=== PATIENT | female | born 1930 | race Caucasian/White ===

== ENCOUNTER 2017-01-22 13:48 | Observation (INO) | payer MEDICARE, BC ==
[~2017-01-22] VITALS: Ht 175.3 cm; Wt 86.6 kg
--- NOTE | ~2017-01-22 | CON ---
PATIENT'S NAME: GERRI FUENTES [facility] AGE: 87 Y [address] ROOM: [address] [address] LOCATION: [facility] ADMIT DATE: 01/22/2017 Consultation DISCHARGE DATE: FAMILY PHYSICIAN: Henri Barrera MD ATTENDING PHYSICIAN: JORDYN CUMMINGS CONSULTING PHYSICIAN: Dr. Lilliam Alves. CHIEF COMPLAINT: Preoperative evaluation. HISTORY OF PRESENT ILLNESS: The patient is a very pleasant 87-year-old female, who unfortunately fell on Sunday, January 19 at about 9:30 in the morning. She was outside pulling some weeds and lost her balance, caught herself with the right arm and went to use the right arm to get up and further felt immediate pain after that. She had no loss of consciousness or no closed head trauma. The patient was seen and evaluated in [place] with Dr. Aldrich, who diagnosed her with a right distal radius fracture. The patient was splinted and placed in a sling, further consultation with Dr. Cummings occurred that day and he recommended that the patient be seen today for definitive treatment. The patient was seen and Dr. Cummings recommended admission for ORIF on 01/23/2017. We have been asked to evaluate the patient from cardiac and pulmonary standpoint and her ability to undergo anesthesia. The patient is relatively healthy and independent. She follows with her physician on a regular basis. She has not had any recent changes to her past medical history. She denies any chest pain, pressure, or palpitations, or orthopnea, or orthostasis or PND. She denies any cough, hemoptysis, or shortness of breath or wheezing. She has not had any surgical complications in the past. No history of DVT or PE. She denies any infected wounds or ones that would not heal. PAST MEDICAL HISTORY: Illnesses include: 1. Essential hypertension. 2. Bilateral lower extremity peripheral neuropathy. 3. Restless legs syndrome. 4. Chronic constipation. 5. History of pulmonary hypertension and question of pulmonary fibrosis. SURGICAL HISTORY: Includes: 1. Tonsillectomy at 17 years of age. 2. 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 ROOM: [address] [address] LOCATION: [facility] ADMIT DATE: 01/22/2017 Consultation DISCHARGE DATE: FAMILY PHYSICIAN: Henri Barrera MD ATTENDING PHYSICIAN: JORDYN CUMMINGS hardware replacement. 3. Left wrist fracture and repair. 4. Cholecystectomy. 5. Left 5th finger surgical repair. 6. Bilateral cataract extraction. 7. Right ankle surgery, 2012. 8. ACDF of C5 through C6, and C6 through C7 by Dr. Patel in 2000. 9. The patient reports a history of Lexiscan and cardiac cath, date unknown, results reported as negative, no further workup pursued. SOCIAL HISTORY: The patient is and retired. She denies any alcohol, tobacco, or illicit drug use and denies any second hand use, they live on a farm outside of [place], [place]. FAMILY HISTORY: Significant for diabetes in her mother. She states that her dad lives to the age of 101 and of natural causes. She did have three brothers, however, who following heart surgery, she states all were smokers. ALLERGIES: NO KNOWN MEDICAL ALLERGIES. CURRENT MEDICATIONS: 1. Losartan 50 mg q.a.m. 2. Gabapentin 300 mg twice daily. 3. Omeprazole to 20 mg daily. 4. Lasix 20 mg daily. 5. Metoprolol extended release 100 mg daily. 6. Multivitamin 1 tab in the morning. 7. Calcium plus D 600 mg twice daily. 8. Mirapex 0.25 mg in the evening. 9. Amitriptyline 100 mg in the evening. 10. Generic stool softener one daily. 11. Aspirin 81 mg, last dose was on January 21, 2017 in the evening. 12. MiraLAX 17 g daily. REVIEW OF SYSTEMS: Review of systems was obtained and deemed negative apart from those mentioned above in the HPI. PHYSICAL EXAMINATION: VITAL SIGNS. Height is 5 feet 9 inches, weight is 86.6 kilos, blood pressure is 138/56, pulse is 68, respirations 15, temp was 97.5. GENERAL: The patient is alert, oriented, in no acute distress. PATIENT'S NAME: GERRI FUENTES [facility] AGE: 87 Y [address] ROOM: [address] [address] LOCATION: [facility] ADMIT DATE: 01/22/2017 Consultation DISCHARGE DATE: FAMILY PHYSICIAN: Henri Barrera MD ATTENDING PHYSICIAN: JORDYN CUMMINGS HEENT: Head: Normocephalic and atraumatic. Eyes: Pupils are equal, round, and reactive to light. Throat: Posterior pharynx is nonerythematous. No tonsillar hypertrophy or exudate. Dentition: Good condition for her age. NECK: Supple. No adenopathy or thyromegaly. LUNGS: Clear to auscultation and percussion bilaterally. Breath sounds are artie and regular throughout. HEART: Regular rate and rhythm without murmur. No carotid bruits or JVD. ABDOMEN: Soft, nondistended. Positive bowel sounds auscultated. No masses or organomegaly palpated. EXTREMITIES: Bilateral lower extremities have trace to 1+ edema. No calf tenderness. No cyanosis or clubbing. MUSCULOSKELETAL: Right upper extremity is splinted in a sling. She has some edema noted in her fingers. Capillary refills left 2 seconds and sensation are intact, however, diminished from the left side. No significant joint effusions or crepitus noted on exam of range of motion. NEUROLOGIC: Cranial nerves II through XII grossly intact. No focal or sensory deficit noted. SKIN: Free of rash or lesion. PSYCHIATRIC: Mood and affect are appropriate for the patient's condition. LABORATORY DATA: Laboratory studies and x-ray are all pending at the time of dictation. IMPRESSION: 1. Right distal radial fracture, secondary to fall. 2. Essential hypertension. 3. Restless legs syndrome. 4. Chronic constipation. 5. Gastroesophageal reflux disease. 6. Peripheral neuropathy. 7. Insomnia. 8. Peripheral edema. PLAN: 1. Pending review of laboratory and diagnostic studies. The patient would be a low cardiac risk to proceed with her procedure. Final clearance will be pending Dr. Alves's review. 2. We will continue her current blood pressure medications with holding parameters in place. 3. We will continue home medications for the above mentioned diagnoses as outlined. CODE STATUS: Full code. PATIENT'S NAME: GERRI FUENTES [facility] AGE: 87 Y [address] ROOM: [place] [address] LOCATION: [facility] ADMIT DATE: 01/22/2017 Consultation DISCHARGE DATE: FAMILY PHYSICIAN: Henri Barrera MD ATTENDING PHYSICIAN: JORDYN CUMMINGS DVT prophylaxis with SCDs. Dr. Alves was present and assisted in the assessment and plan of this diagnosis of this patient. Further orders will be forthcoming. We do appreciate participating in this patient's care. Thank you very much for the ability to serve her while hospitalized at [facility]. CINDI RENNER FOR LILLIAM ALVES MD LULU/modl /[id number] d: 01/22/172227 t: 01/23/17 0855, CONSULTATION REPORT
--- NOTE | ~2017-01-22 | OR ---
PATIENT'S NAME: GERRI CUEVAS [facility] AGE: 87 Y [address] ROOM: [place] [address] LOCATION: [facility] ADMIT DATE: 01/22/2017 OR/Procedure Report DISCHARGE DATE: FAMILY PHYSICIAN: Henri Barrera MD ATTENDING PHYSICIAN: JORDYN CUMMINGS SURGEON: Jordyn Cummings MD VEGETABLE SCULLION: Kedar Mercer PA-C DATE OF PROCEDURE: 01/23/2017 PREOPERATIVE DIAGNOSIS: Right three part intra-articular fracture of the distal radius. POSTOPERATIVE DIAGNOSIS: Right three part intra-articular fracture of the distal radius. PROCEDURES PERFORMED: 1. Open reduction and internal fixation of right three-part intra-articular distal radius fracture. 2. Use of intraoperative fluoroscopy, less than 1 hour. 3. Placement of short-arm splint intraoperatively. ANESTHESIA: General endotracheal anesthesia. FLUIDS: See Anesthesia report. ESTIMATED BLOOD LOSS: Minimal. TOURNIQUET: Right proximal arm at 250 mmHg. SPECIMENS: None. COMPLICATIONS: None. DISPOSITION: Stable, in PACU. COUNTS: All counts were correct. IMPLANTS: Include a Synthes right periarticular distal radius locking plate and screws including K-wires. INDICATIONS: Ms. Cuevas is a pleasant 87-year-old right-hand dominant female, who underwent the noted procedures above. The risks, benefits, and alternatives pursuing surgical intervention were discussed with the patient and her family in detail. She elected to proceed with surgery. Anesthesia was consulted for their perioperative evaluation of the patient. I PATIENT'S NAME: GERRI CUEVAS [facility] AGE: 87 Y [address] ROOM: [place] [address] LOCATION: [facility] ADMIT DATE: 01/22/2017 OR/Procedure Report DISCHARGE DATE: FAMILY PHYSICIAN: Henri Barrera MD ATTENDING PHYSICIAN: JORDYN CUMMINGS marked the patient's right upper extremity indicating the correct surgical site. DESCRIPTION OF PROCEDURE: Operative Report in Detail: The patient was brought from the holding area to the operating room. A time-out was performed. General endotracheal anesthesia was administered. The right upper extremity was then prepped and draped in a sterile fashion. Antibiotics were administered for perioperative prophylaxis. I turned my attention to the right wrist. An Esmarch was used to exsanguinate the limb and the tourniquet was inflated to 250 mmHg. I introduced intraoperative fluoroscopy. I identified the fracture. I began with a manual closed reduction to attempt to bring the fracture out to length and evaluate the pattern. Using two K-wires, I placed one K-wire through the radial styloid and through the dorsum of the Jose's tubercle to provide provisional fixation. I cut each pin and left them in place. I then turned my attention to the volar aspect of the wrist. I used a #15 blade knife to performing a trans-flexor carpi radialis incision. The incision was carried through use of the knife. Incision was carried through skin and subcutaneous tissue. I identified the flexor carpi radialis tendon. I retracted it radially. I incised it through deeper fascia. I identified the quadratus muscle and incised it with radial insertion. I identified the fracture site deep to it. I copiously irrigated the wound with a normal sterile saline solution. I then debrided the fracture site. I subsequently introduced the plate and pinned it in place. I confirmed the position of the plate fluoroscopically. I began by drilling a compression screw into the distal row center portion of the plate in order to suck the plate down to the bone. I then drilled for, measured, and placed locking screws to avoid multiple points of fixed-angle fixation in the distal aspect of the plate. With my PA holding traction and volarly tilting the wrist, I subsequently drilled for, measured, and placed a screw in the oblong hole of the plate to reduce the plate to the shaft. This restored the volar tilt of the distal radius. I then drilled for, measured, and placed 2 locking screws proximal to achieve 6 cortices of fixation in the shaft. Final fluoroscopic images of the right distal radius revealed evidence of a successful open reduction and internal fixation of right intra-articular PATIENT'S NAME: GERRI CUEVAS [facility] AGE: 87 Y [address] ROOM: [address] [address] LOCATION: [facility] ADMIT DATE: 01/22/2017 OR/Procedure Report DISCHARGE DATE: FAMILY PHYSICIAN: Henri Barrera MD ATTENDING PHYSICIAN: JORDYN CUMMINGS distal radius fracture with hardware intact. The wound was then copiously irrigated with normal sterile saline solution. Using 0 Vicryl suture, I reapproximated the quadratus muscle over the plate. I then used 0 Vicryl and 2-0 Vicryl suture to approximate the subcutaneous tissue. Prineo was used to approximate the skin. Sterile dressings were placed in the form of Xeroform, followed by 4x4, and Webril. The patient was then placed into a volar splint. Tourniquet was let down and the fingers reperfused well. The patient was then transferred from the operating room table on to the stretcher and extubated. She was brought to the recovery room in stable condition. There were no intraoperative complications noted. Of note, my PA, Kedar Mercer PA-C, played an integral role in the intraoperative care of this patient. This included preoperative positioning, intraoperative expert retraction, and closing and splinting functions. IMPRESSION: The patient is status post the noted procedures above. PLAN: The patient will be nonweightbearing on the right upper extremity. She is placed into a splint. She will have a sling for comfort. She will be instructed to ice, elevate, and rest the arm. Pain control in the form of Percocet. DVT prophylaxis will be mechanical in nature. The patient will be discharged to home provided she meets PACU discharge criteria. She will follow up in my office in 2 weeks for first postoperative visit. MD KARLA QUEVEDO/maxwell /[id number] d: 01/23/17 2227 t: 01/24/17 1338, OPERATIVE SUMMARY
[2017-01-22] MEDS ORDERED: COZAAR50 MG PO (17:33)
[2017-01-22] MEDS ORDERED: NEURONTIN300 MG PO (17:34)
[2017-01-22] MEDS ORDERED: PRILOSEC20 MG PO (17:36)
[2017-01-22] MEDS ORDERED: LASIX20 MG PO (17:37)
[2017-01-22] MEDS ORDERED: TOPROL XL100 MG PO (17:37)
[2017-01-22] MEDS ORDERED: DAILY MULTIPLE1 EAC1 PO (17:38)
[2017-01-22] MEDS ORDERED: CALCIUM 500-VI1 EACH PO (17:38)
[2017-01-22] MEDS ORDERED: MIRAPEX0.25 MG PO (17:39)
[2017-01-22] MEDS ORDERED: AMITRIPTYLINE100 MG PO (17:40)
[2017-01-22 17:41] LABS: BASOPHIL % 0.3 %; EOSINOPHIL # 0.2 K/uL (0.0-0.5); EOSINOPHIL % 2.8 %; HEMATOCRIT 38.9 % (30.0-46.0); HEMOGLOBIN 13.3 g/dL (10.0-15.0); IMMATURE GRANULOCYTE % 0.4 %; LYMPHOCYTE % 28.5 %; MCH 32.9 pg (27.0-34.0); MCHC 34.2 gm/dL (32.0-36.5); MCV 96.3 fl (83.0-98.0); MONOCYTE # 0.7 K/uL (0.0-1.0); MONOCYTE % 10.6 %; MPV 9.5 fl (9.4-12.4); NEUTROPHIL % 57.4 %; NRBC % 0 /100WBC (0-0.00); PLATELET COUNT 232 K/uL (150-450); RBC 4.04 M/uL (3.00-5.00); RDW-CV 14.6 % (11.9-14.6); WBC 6.9 K/uL (4.0-11.0)
[2017-01-22] MEDS ORDERED: COLACE100 MG PO (17:41)
[2017-01-22] MEDS ORDERED: ASPIRIN (CHILDR81 MG PO (17:42)
[2017-01-22] MEDS ORDERED: MIRALAX17 GM PO (17:42)
[2017-01-22 17:48] LABS: INR - (THERAPEUTIC) 0.98 (0.92-1.07); PROTIME 10.3 SECONDS (9.8-11.4); PTT 28 SECONDS (25-32)
[2017-01-22 17:53] LABS: ANION GAP 6.9 (10.0-19.0); CALCIUM 8.7 mg/dL (8.5-10.5); POTASSIUM 3.9 mMol/L (3.7-5.1)
[2017-01-22 18:44] LABS: BILIRUBIN URINE NEGATIVE (NEGATIVE); BLOOD URINE NEGATIVE /UL (NEGATIVE); COLOR URINE YELLOW (YELLOW); GLUCOSE URINE NEGATIVE (NEGATIVE); KETONE URINE NEGATIVE (NEGATIVE); LEUKOCYTES URINE 25 /UL (NEGATIVE); NITRITE URINE NEGATIVE (NEGATIVE); PH URINE 6.5 (4.0-8.0); PROTEIN URINE NEGATIVE (NEGATIVE); TURBIDITY URINE CLEAR (CLEAR); UROBILINOGEN URINE NORMAL (NORMAL)
[2017-01-22 18:57] LABS: RBC URINE NEGATIVE #/HPF (NEGATIVE)
[2017-01-22 18:58] LABS: BACTERIA URINE NEGATIVE (NEGATIVE)
[2017-01-23] MEDS ORDERED: ULTRAM50 MG PO ×2 (10:33→10:34)
[2017-01-24] MEDS ORDERED: PERCOCET 5-3251 EACH PO (15:51)
== END 2017-01-24 17:36 | disposition disaster alternative care site (69) ==
LOC: G3N 13:48
PROVIDERS: ADMIT Orthopaedic Surgery Adult Reconstructive Orthopaedic Surgery
PROC: 0PSH04Z Reposition Right Radius with Internal Fixation Device, Open Approach (ICD-10-PCS; principal; 2017-01-23)
DX: S52.571A Other intraarticular fracture of lower end of right radius, initial encounter for closed fracture (principal); I10 Essential (primary) hypertension; Z23 Encounter for immunization; K59.09 Other constipation; I27.2 Other secondary pulmonary hypertension; G25.81 Restless legs syndrome; K21.9 Gastro-esophageal reflux disease without esophagitis; G47.00 Insomnia, unspecified; G62.9 Polyneuropathy, unspecified; Z90.49 Acquired absence of other specified parts of digestive tract; Z98.41 Cataract extraction status, right eye; Z98.42 Cataract extraction status, left eye; Z79.899 Other long term (current) drug therapy; W18.30XA Fall on same level, unspecified, initial encounter; Z98.890 Other specified postprocedural states
CPT/HCPCS: C1713; G0008; J0690; J2001; J2250; J7030